=== PATIENT | female | born 1945 | race Caucasian/White ===

== ENCOUNTER → 2024-06-27 12:48 | Outpatient (REF) | payer OTHER, SELFPAY | LOC: RAD 12:48 | PROVIDERS: ATTENDING PHYSICIAN Family Medicine | DX: M25.562 Pain in left knee (principal) | CPT/HCPCS: 73564 ==

== ENCOUNTER → 2024-11-23 13:21 | Outpatient (REF) | payer OTHER, SELFPAY | LOC: RCS 13:21 | PROVIDERS: ATTENDING PHYSICIAN Family Medicine | DX: R01.1 Cardiac murmur, unspecified (principal); Z90.5 Acquired absence of kidney | CPT/HCPCS: 76775; 93306 ==